=== PATIENT | male | born 1970 | race Caucasian/White ===

== ENCOUNTER 2018-08-28 11:12 | Inpatient (IN) | payer MEDICAID, OTHER ==
[~2018-08-28] VITALS: Ht 190.5 cm; Wt 110.0 kg
[2018-08-28] MEDS ORDERED: METH5TAB2 PO (11:29)
[2018-08-28] MEDS ORDERED: VANCOMYCIN PER PHARMACY MC ONE (11:30)
[2018-08-28] MEDS ORDERED: KETOROLAC 30 MG/1 ML IVPush ONE (11:30)
[2018-08-28] MEDS ORDERED: CLINDAMYCIN PMX 900MG/50ML 50 ML IV ONE (11:30)
[2018-08-28] MEDS ORDERED: KETOROLAC 30 MG/1 ML ONE (11:30)
[2018-08-28] MEDS ORDERED: CLINDAMYCIN PMX 900MG/50ML 50 ML ONE (11:31)
[2018-08-28] MEDS ORDERED: VANCOMYCIN 1,800 MG in SODIUM CHLORIDE 0.9% 250 ML IV ONE (12:00)
[2018-08-28 12:13] LABS: ALANINE AMINOTRANSFERASE 39 U/L (12-78); ALBUMIN 2.6 g/dL (3.4-5.0); ANION GAP 9 mmol/L (5-15); CALCIUM 8.7 mg/dL (8.5-10.1); CHLORIDE 110 mmol/L (98-107); CREATININE 0.95 mg/dL (0.7-1.3)
[2018-08-28 12:15] LABS: ALKALINE PHOSPHATASE 134 U/L (45-117); BILIRUBIN,TOTAL 0.4 mg/dL (0.2-1.0); TOTAL PROTEIN 8.9 g/dL (6.4-8.2)
--- NOTE | 2018-08-28 12:27 | NUR ---
PT RESTING IN GURNEY WITH GUARDS AT BEDSIDE, IV ESTABLISHED VIA US AFTER SEVERAL ATTEMPTS UNSUCCESSFUL. 2ND BC DRAWN OFF IV START AND ABX STARTED AFTER BC DRAWN. PT TO BE ADMITTED
[2018-08-28 12:34] LABS: MD YES; MEAN CORPUSCULAR HEMOGLOBIN 23.8 pg (27.5-34.5); MEAN CORPUSCULAR HGB CONC 31.5 g/dL (33.2-36.2); MEAN CORPUSCULAR VOLUME 75.5 fL (81-97); MEAN PLATELET VOLUME 5.8 fL (7.4-10.4); PLATELET COUNT 626 x10^3/uL (130-400); RED BLOOD COUNT 4.35 x10^6/uL (4.38-5.82); RED CELL DISTRIBUTION WIDTH 25.5 % (9.4-14.8)
[2018-08-28 12:38] LABS: <PLATELET ESTIMATE> INCREASED; <PLT MORPHOLOGY> NORMAL PLT MORPH; ANISOCYTOSIS 1+; EOS#(MANUAL) 0.18 x10^3/uL (0.0-0.4); EOS% (MANUAL) 2 % (1-7); LYMPH#(MANUAL) 1.85 x10^3/uL (1-3.4); LYMPHS% (MANUAL) 21 % (22-44); MICROCYTOSIS 1+; MONOS#(MANUAL) 0.09 x10^3/uL (0.3-2.7); MONOS% (MANUAL) 1 % (2-9); SEG#(MANUAL) 6.69 x10^3/uL (1.8-6.8); SEGS% (MANUAL) 76 % (42-75)
--- NOTE | 2018-08-28 13:22 | NUR ---
IV CLEOCIN FINISHED AND VANCO STARTED, PT C/O PAIN, STATES "ITS ALSO WITHDRAWLS MAKING IT REAL BAD". PT RESTING IN GURNEY WITH GUARDS AT BEDSIDE
[2018-08-28] MEDS ORDERED: ACETAMINOPHEN 500 MG TABLET PO ONE (13:30)
[2018-08-28] MEDS ORDERED: ACETAMINOPHEN 500 MG TABLET ONE (13:42)
[2018-08-28] MEDS ORDERED: ACETAMINOPHEN 325 MG TABLET PO PRN (14:30)
[2018-08-28] MEDS ORDERED: LABETALOL 5MG/ML, 20ML IVPush PRN (14:30)
[2018-08-28] MEDS ORDERED: VANCOMYCIN PER PHARMACY MC PRN (14:30)
--- NOTE | 2018-08-28 14:32 | NUR ---
ADMITTING MD AT BEDSIDE
--- NOTE | 2018-08-28 14:57 | NUR ---
PT REFUSING TO HAVE LABS DRAWN, INDUCTION COORDINATION ENGINEER NOTIFIED RN. ASKED WHY AND PT STATES "THEY WONT GIVE ME MY [facility], I WANT TO GO BACK TO [facility], I GET OUT TOMORROW AND I WILL TAKE CARE OF IT THEN", OFFICER AT BEDSIDE NOTIFYING LUISITO AT [facility], HE DOES NOT THINK THEY WILL ACCEPT PT BACK. MD AND RAILWAY YARD ASSISTANT NOTIFIED.
--- NOTE | 2018-08-28 15:13 | NUR ---
OFFICER DEAL NOTIFIED SGT RUBIN AT [facility] REFUSALF OF TREATMENT AND WISH TO LEAVE AMA, SGNadine OK'D PT COMING BACK TO LONG-TERM AGAINST MEDICAL ADVICE WITH AMA PAPERWORK. NO LONGER ON SHIFT, TO CONTACT AND TO SPEAK TO OFFICER AND PT TO ENSURE UNDERSTAND OF PT CONDITION AND RISKS OF LEAVING AMA.
[2018-08-28] MEDS ORDERED: LORazepam 2 MG/ML, 1ML IVPush PRN (16:00)
--- NOTE | 2018-08-28 16:09 | NUR ---
SPOKE WITH PT AND GUARD, PT NO LONGER LEAVING AMA
--- NOTE | 2018-08-28 16:17 | NUR ---
REPORT TO EVE JENKINS
[2018-08-28 16:45] VITALS: BP 113/77
[2018-08-28] MEDS ORDERED: PHARMACOKINETIC MONITORING MC PRN (17:00)
[2018-08-28] MEDS ORDERED: PHARMACOKINETIC CONSULTATION MC ONE (17:00)
[2018-08-28] MEDS: HEPARIN 5,000 UNITS/ML, 1ML SQ SCH ×2 (17:29→23:17)
[2018-08-28] MEDS: PIPERACILLIN/TAZO/PMX 3.375GM 50 ML IV SCH ×2 (17:30→23:18)
[2018-08-28 19:12] VITALS: BP 105/65
[2018-08-29] MEDS: VANCOMYCIN 1,800 MG in SODIUM CHLORIDE 0.9% 250 ML IV SCH ×2 (01:06→13:52)
[2018-08-29 01:11] VITALS: BP 117/71
[2018-08-29 05:21] LABS: MEAN CORPUSCULAR HEMOGLOBIN 23.6 pg (27.5-34.5); MEAN CORPUSCULAR HGB CONC 31.3 g/dL (33.2-36.2); MEAN CORPUSCULAR VOLUME 75.5 fL (81-97); MEAN PLATELET VOLUME 5.9 fL (7.4-10.4); PLATELET COUNT 513 x10^3/uL (130-400); RED BLOOD COUNT 3.95 x10^6/uL (4.38-5.82)
[2018-08-29 05:24] LABS: CHLORIDE 111 mmol/L (98-107)
[2018-08-29] MEDS: PIPERACILLIN/TAZO/PMX 3.375GM 50 ML IV SCH ×4 (05:27→23:30)
[2018-08-29 05:38] LABS: ALANINE AMINOTRANSFERASE 29 U/L (12-78); ALBUMIN 2.2 g/dL (3.4-5.0); ALKALINE PHOSPHATASE 105 U/L (45-117); ANION GAP 9 mmol/L (5-15); BILIRUBIN,TOTAL 0.4 mg/dL (0.2-1.0); CALCIUM 8.1 mg/dL (8.5-10.1); CREATININE 1.05 mg/dL (0.7-1.3); TOTAL PROTEIN 7.6 g/dL (6.4-8.2)
[2018-08-29 05:56] LABS: BASOPHILS # (AUTO) 0.03 x10^3/uL (0-0.1); BASOPHILS % (AUTO) 0 % (0-1); EOSINOPHILS # (AUTO) 0.17 x10^3/uL (0-0.4); EOSINOPHILS % (AUTO) 2 % (1-7); LYMPHOCYTES # (AUTO) 1.62 x10^3/uL (1-3.4); LYMPHOCYTES % (AUTO) 23 % (22-44); MD SCAN; MONOCYTES % (AUTO) 8 % (2-9); NEUTROPHILS # (AUTO) 4.73 x10^3/uL (1.8-6.8); NEUTROPHILS % (AUTO) 66 % (42-75)
[2018-08-29] MEDS: HEPARIN 5,000 UNITS/ML, 1ML SQ SCH ×3 (06:55→22:30)
[2018-08-29 08:00] VITALS: BP 137/72
[2018-08-29] MEDS: FERROUS SULFATE 325 MG TABLET PO SCH ×2 (08:11→17:12)
[2018-08-29] MEDS: MUPIROCIN OINT 2%, 22GM TP SCH ×3 (11:32→21:00)
[2018-08-29] MEDS: POTASSIUM CHLORIDE 10 MEQ in D5%-0.45% NACL 1,000 ML IV SCH ×2 (12:43→22:00)
[2018-08-29 19:38] VITALS: BP 122/78
[2018-08-30] MEDS: VANCOMYCIN 1,800 MG in SODIUM CHLORIDE 0.9% 250 ML IV SCH ×2 (00:54→17:25)
[2018-08-30] MEDS: PIPERACILLIN/TAZO/PMX 3.375GM 50 ML IV SCH ×3 (05:30→19:27)
[2018-08-30] MEDS: HEPARIN 5,000 UNITS/ML, 1ML SQ SCH ×3 (05:42→22:30)
[2018-08-30 07:35] VITALS: BP 133/91
[2018-08-30] MEDS: POTASSIUM CHLORIDE 10 MEQ in D5%-0.45% NACL 1,000 ML IV SCH (08:00)
[2018-08-30] MEDS: FERROUS SULFATE 325 MG TABLET PO SCH ×2 (08:00→17:00)
[2018-08-30] MEDS: MUPIROCIN OINT 2%, 22GM TP SCH ×3 (09:00→21:10)
[2018-08-30 09:11] LABS: MEAN CORPUSCULAR HEMOGLOBIN 23.8 pg (27.5-34.5); MEAN CORPUSCULAR HGB CONC 31.6 g/dL (33.2-36.2); MEAN CORPUSCULAR VOLUME 75.3 fL (81-97); MEAN PLATELET VOLUME 5.8 fL (7.4-10.4); PLATELET COUNT 521 x10^3/uL (130-400); RED CELL DISTRIBUTION WIDTH 25.1 % (9.4-14.8)
[2018-08-30 09:15] LABS: ALANINE AMINOTRANSFERASE 28 U/L (12-78); ALBUMIN 2.3 g/dL (3.4-5.0); ANION GAP 6 mmol/L (5-15); CALCIUM 8.2 mg/dL (8.5-10.1); CHLORIDE 111 mmol/L (98-107); CREATININE 0.98 mg/dL (0.7-1.3)
[2018-08-30 09:18] LABS: ALKALINE PHOSPHATASE 97 U/L (45-117); BILIRUBIN,TOTAL 0.2 mg/dL (0.2-1.0); TOTAL PROTEIN 7.7 g/dL (6.4-8.2)
[2018-08-30 09:46] LABS: BASOPHILS # (AUTO) 0.05 x10^3/uL (0-0.1); BASOPHILS % (AUTO) 1 % (0-1); EOSINOPHILS # (AUTO) 0.14 x10^3/uL (0-0.4); EOSINOPHILS % (AUTO) 3 % (1-7); LYMPHOCYTES # (AUTO) 1.65 x10^3/uL (1-3.4); LYMPHOCYTES % (AUTO) 30 % (22-44); MD SCAN; MONOCYTES # (AUTO) 0.51 x10^3/uL (0.2-0.8); MONOCYTES % (AUTO) 9 % (2-9); NEUTROPHILS % (AUTO) 58 % (42-75)
[2018-08-30 13:40] VITALS: BP 118/67
[2018-08-30] MEDS: METHADONE 10 MG TABLET PO SCH (14:58)
[2018-08-31] MEDS: PIPERACILLIN/TAZO/PMX 3.375GM 50 ML IV SCH ×4 (01:29→23:13)
[2018-08-31] MEDS: HEPARIN 5,000 UNITS/ML, 1ML SQ SCH ×3 (05:40→22:30)
[2018-08-31] MEDS: VANCOMYCIN 1,800 MG in SODIUM CHLORIDE 0.9% 250 ML IV SCH ×2 (05:40→18:35)
[2018-08-31 07:25] VITALS: BP 138/81
[2018-08-31] MEDS: METHADONE 10 MG TABLET PO SCH (08:49)
[2018-08-31] MEDS: FERROUS SULFATE 325 MG TABLET PO SCH ×2 (08:49→16:32)
[2018-08-31] MEDS: MUPIROCIN OINT 2%, 22GM TP SCH ×3 (08:50→21:00)
[2018-08-31] MEDS ORDERED: SULFAMETH./TRIMETHOPRIM DS 800MG/160MG TABLET PO SCH (09:00)
[2018-08-31] MEDS ORDERED: AMOXICILLIN/CLAV 875-125MG TABLET PO SCH (09:00)
[2018-08-31 12:14] VITALS: BP 113/74
[2018-08-31] MEDS ORDERED: PHARMACOKINETIC MONITORING MC PRN (13:00)
[2018-08-31] MEDS ORDERED: VANCOMYCIN PER PHARMACY MC PRN (13:00)
[2018-08-31 23:19] VITALS: BP 105/67
[2018-09-01 05:35] VITALS: BP 108/68
[2018-09-01] MEDS: VANCOMYCIN 1,800 MG in SODIUM CHLORIDE 0.9% 250 ML IV SCH ×2 (05:40→18:06)
[2018-09-01] MEDS: MUPIROCIN OINT 2%, 22GM TP SCH ×3 (05:48→21:00)
[2018-09-01] MEDS: HEPARIN 5,000 UNITS/ML, 1ML SQ SCH ×3 (06:30→22:30)
[2018-09-01] MEDS ORDERED: MIDAZOLAM 1 MG/ML, 2ML ONE (07:47)
[2018-09-01] MEDS ORDERED: FENTANYL PF 250 MCG/5ML ONE ×2 (07:47→08:37)
[2018-09-01] MEDS ORDERED: ALBUTEROL SULFATE 2.5 MG/3 ML NPPB PRN (08:30)
[2018-09-01] MEDS ORDERED: HYDROmorphone 2 MG/ML, 1ML IVPush PRN (08:30)
[2018-09-01] MEDS ORDERED: OXYcodone 5 MG/5 ML ORAL.SOL UDC PO PRN (08:30)
[2018-09-01] MEDS ORDERED: ACETAMINOPHEN 325 MG TABLET PO PRN (08:30)
[2018-09-01] MEDS ORDERED: KETOROLAC 30 MG/1 ML IV PRN (08:30)
[2018-09-01] MEDS ORDERED: hydrALAzine 20 MG/ML, 1ML IV PRN (08:30)
[2018-09-01] MEDS ORDERED: PROMETHAZINE 25 MG/ML, 1ML IV PRN (08:30)
[2018-09-01] MEDS ORDERED: LABETALOL 5MG/ML, 20ML IV PRN (08:30)
[2018-09-01] MEDS ORDERED: DIAZEPAM 5 MG/ML, 2ML IVPush PRN (08:30)
[2018-09-01] MEDS ORDERED: MEPERIDINE/PF 25MG/0.5ML IVPush PRN (08:30)
[2018-09-01] MEDS ORDERED: NEOSPORIN OINT, 15GM ONE (08:43)
[2018-09-01] MEDS ORDERED: BACITRACIN ZINC OINT 500U/GM, 0.9 GM ONE ×2 (08:43→08:44)
[2018-09-01] MEDS ORDERED: DEXAMETHASONE 4 MG/ML, 1ML ONE (08:51)
[2018-09-01] MEDS ORDERED: CEFAZOLIN 1,000 MG ONE (08:51)
[2018-09-01] MEDS ORDERED: PROPOFOL 10 MG/ML, 20ML ONE (08:51)
[2018-09-01] MEDS ORDERED: ONDANSETRON 2MG/ML, 2ML ONE (08:51)
[2018-09-01] MEDS ORDERED: HYDROmorphone 2 MG/ML, 1ML ONE (09:11)
[2018-09-01] MEDS ORDERED: FENTANYL PF 100 MCG/2ML ONE (09:11)
[2018-09-01] MEDS ORDERED: OXYcodone 5 MG/5 ML ORAL.SOL UDC ONE (09:12)
[2018-09-01] MEDS ORDERED: KETOROLAC 30 MG/1 ML ONE (09:12)
[2018-09-01] MEDS: FENTANYL PF 100 MCG/2ML IV PRN ×2 (09:14→09:23)
[2018-09-01] MEDS: PIPERACILLIN/TAZO/PMX 3.375GM 50 ML IV SCH ×2 (10:23→20:26)
[2018-09-01] MEDS: FERROUS SULFATE 325 MG TABLET PO SCH ×2 (10:24→17:05)
[2018-09-01] MEDS: METHADONE 10 MG TABLET PO SCH (10:24)
[2018-09-01 12:02] VITALS: BP 108/66
[2018-09-01 20:18] VITALS: BP 108/66
[2018-09-01] MEDS: SODIUM CHLORIDE FLUSH 3ML SYRINGE IVF SCH (21:00)
[2018-09-02 01:47] VITALS: BP 103/63
[2018-09-02] MEDS: PIPERACILLIN/TAZO/PMX 3.375GM 50 ML IV SCH ×2 (04:07→12:07)
[2018-09-02 05:23] LABS: MEAN CORPUSCULAR HEMOGLOBIN 23.8 pg (27.5-34.5); MEAN CORPUSCULAR HGB CONC 31.2 g/dL (33.2-36.2); MEAN CORPUSCULAR VOLUME 76.1 fL (81-97); MEAN PLATELET VOLUME 5.8 fL (7.4-10.4); PLATELET COUNT 471 x10^3/uL (130-400); RED BLOOD COUNT 3.64 x10^6/uL (4.38-5.82); RED CELL DISTRIBUTION WIDTH 24.9 % (9.4-14.8)
[2018-09-02 05:30] LABS: ALBUMIN 2.3 g/dL (3.4-5.0); ANION GAP 6 mmol/L (5-15); CALCIUM 8.1 mg/dL (8.5-10.1); CHLORIDE 104 mmol/L (98-107)
[2018-09-02 05:34] LABS: ALANINE AMINOTRANSFERASE 44 U/L (12-78); ALKALINE PHOSPHATASE 190 U/L (45-117); BILIRUBIN,TOTAL 0.2 mg/dL (0.2-1.0); CREATININE 1.31 mg/dL (0.7-1.3); TOTAL PROTEIN 7.4 g/dL (6.4-8.2); VANCOMYCIN,TROUGH 28.8 mcg/mL (5.0-10.0)
[2018-09-02 05:47] LABS: BASOPHILS # (AUTO) 0.02 x10^3/uL (0-0.1); BASOPHILS % (AUTO) 0 % (0-1); EOSINOPHILS # (AUTO) 0.05 x10^3/uL (0-0.4); EOSINOPHILS % (AUTO) 1 % (1-7); LYMPHOCYTES # (AUTO) 2.09 x10^3/uL (1-3.4); LYMPHOCYTES % (AUTO) 32 % (22-44); MD SCAN; MONOCYTES # (AUTO) 0.39 x10^3/uL (0.2-0.8); MONOCYTES % (AUTO) 6 % (2-9); NEUTROPHILS # (AUTO) 4.04 x10^3/uL (1.8-6.8); NEUTROPHILS % (AUTO) 61 % (42-75)
[2018-09-02] MEDS: VANCOMYCIN 1,800 MG in SODIUM CHLORIDE 0.9% 250 ML IV SCH (06:00)
[2018-09-02] MEDS: HEPARIN 5,000 UNITS/ML, 1ML SQ SCH ×3 (06:30→22:03)
[2018-09-02 07:02] VITALS: BP 111/70
[2018-09-02] MEDS: FERROUS SULFATE 325 MG TABLET PO SCH ×2 (08:06→17:06)
[2018-09-02] MEDS: METHADONE 10 MG TABLET PO SCH (08:06)
[2018-09-02] MEDS: MUPIROCIN OINT 2%, 22GM TP SCH (08:07)
[2018-09-02] MEDS: SODIUM CHLORIDE FLUSH 3ML SYRINGE IVF SCH ×2 (08:10→21:00)
[2018-09-02] MEDS: SODIUM CHLORIDE 0.9% 1,000 ML IV SCH ×2 (08:10→22:01)
[2018-09-02] MEDS: CEFTAROLINE 600 MG in SODIUM CHLORIDE 0.9% 100 ML IV SCH (17:06)
[2018-09-02 19:50] VITALS: BP 127/82
[2018-09-03 01:16] VITALS: BP 108/67
[2018-09-03] MEDS: CEFTAROLINE 600 MG in SODIUM CHLORIDE 0.9% 100 ML IV SCH ×2 (05:00→15:23)
[2018-09-03] MEDS: HEPARIN 5,000 UNITS/ML, 1ML SQ SCH ×3 (05:47→21:32)
[2018-09-03 06:21] LABS: ALBUMIN 2.3 g/dL (3.4-5.0); ANION GAP 7 mmol/L (5-15); CALCIUM 8.4 mg/dL (8.5-10.1); CHLORIDE 108 mmol/L (98-107)
[2018-09-03 06:24] LABS: ALANINE AMINOTRANSFERASE 35 U/L (12-78); ALKALINE PHOSPHATASE 156 U/L (45-117); BILIRUBIN,TOTAL 0.2 mg/dL (0.2-1.0); CREATININE 1.15 mg/dL (0.7-1.3); TOTAL PROTEIN 7.4 g/dL (6.4-8.2)
[2018-09-03 06:27] LABS: VANCOMYCIN,RANDOM 10.5 mcg/mL
[2018-09-03 07:58] VITALS: BP 115/71
[2018-09-03] MEDS: SODIUM CHLORIDE FLUSH 3ML SYRINGE IVF SCH ×2 (09:00→21:00)
[2018-09-03] MEDS: FERROUS SULFATE 325 MG TABLET PO SCH ×2 (09:29→18:03)
[2018-09-03] MEDS: METHADONE 10 MG TABLET PO SCH (09:30)
[2018-09-03 13:11] VITALS: BP 128/72
[2018-09-03] MEDS: MUPIROCIN OINT 2%, 22GM TP SCH (15:23)
[2018-09-03 21:19] VITALS: BP 119/77
[2018-09-04] MEDS: CEFTAROLINE 600 MG in SODIUM CHLORIDE 0.9% 100 ML IV SCH ×2 (03:32→15:02)
[2018-09-04] MEDS: HEPARIN 5,000 UNITS/ML, 1ML SQ SCH ×3 (06:30→20:54)
[2018-09-04 07:50] VITALS: BP 117/77
[2018-09-04] MEDS: FERROUS SULFATE 325 MG TABLET PO SCH ×2 (08:14→16:55)
[2018-09-04] MEDS: METHADONE 10 MG TABLET PO SCH (08:14)
[2018-09-04] MEDS: FLUDROCORTISONE 0.1 MG TABLET PO SCH (08:14)
[2018-09-04] MEDS: SODIUM CHLORIDE FLUSH 3ML SYRINGE IVF SCH ×2 (08:15→20:54)
[2018-09-04] MEDS: MUPIROCIN OINT 2%, 22GM TP SCH (09:00)
[2018-09-04] MEDS ORDERED: MORPHINE SULFATE 4 MG/ML, 1ML ONE (09:21)
[2018-09-04] MEDS ORDERED: MORPHINE SULFATE 4 MG/ML, 1ML IVPush ONE (09:30)
[2018-09-04 12:46] VITALS: BP 112/67
[2018-09-04 20:53] VITALS: BP 138/87
[2018-09-05] MEDS: CEFTAROLINE 600 MG in SODIUM CHLORIDE 0.9% 100 ML IV SCH ×2 (03:29→15:00)
[2018-09-05] MEDS: HEPARIN 5,000 UNITS/ML, 1ML SQ SCH (05:13)
[2018-09-05 07:59] VITALS: BP 125/80
[2018-09-05] MEDS: ENOXAPARIN 40 MG/0.4 ML SQ SCH (08:00)
[2018-09-05] MEDS: FERROUS SULFATE 325 MG TABLET PO SCH ×2 (08:15→16:05)
[2018-09-05] MEDS: METHADONE 10 MG TABLET PO SCH (08:15)
[2018-09-05] MEDS: SODIUM CHLORIDE FLUSH 3ML SYRINGE IVF SCH ×2 (08:15→20:30)
[2018-09-05] MEDS: FLUDROCORTISONE 0.1 MG TABLET PO SCH (08:15)
[2018-09-05] MEDS: MUPIROCIN OINT 2%, 22GM TP SCH (08:16)
[2018-09-05] MEDS: GABAPENTIN 100 MG CAPSULE PO SCH ×2 (16:05→20:29)
[2018-09-05] MEDS: OMEPRAZOLE 20 MG CAPSULE.DR PO SCH (16:05)
[2018-09-05 20:45] VITALS: BP 116/74
[2018-09-06 00:19] VITALS: BP 112/73
[2018-09-06] MEDS: CEFTAROLINE 600 MG in SODIUM CHLORIDE 0.9% 100 ML IV SCH ×2 (03:54→15:31)
[2018-09-06] MEDS: OMEPRAZOLE 20 MG CAPSULE.DR PO SCH ×2 (05:25→15:31)
[2018-09-06] MEDS: GABAPENTIN 100 MG CAPSULE PO SCH ×4 (05:25→20:31)
[2018-09-06] MEDS: FLUDROCORTISONE 0.1 MG TABLET PO SCH (07:38)
[2018-09-06] MEDS: FERROUS SULFATE 325 MG TABLET PO SCH ×2 (07:38→16:54)
[2018-09-06] MEDS: METHADONE 10 MG TABLET PO SCH (07:38)
[2018-09-06] MEDS: SODIUM CHLORIDE FLUSH 3ML SYRINGE IVF SCH ×2 (07:39→20:31)
[2018-09-06] MEDS: MUPIROCIN OINT 2%, 22GM TP SCH (07:39)
[2018-09-06] MEDS: ENOXAPARIN 40 MG/0.4 ML SQ SCH (07:39)
[2018-09-06 08:12] VITALS: BP 129/82
[2018-09-06 14:09] VITALS: BP 109/71
[2018-09-06 20:35] VITALS: BP 122/80
[2018-09-07 00:36] VITALS: BP 112/70
[2018-09-07] MEDS: CEFTAROLINE 600 MG in SODIUM CHLORIDE 0.9% 100 ML IV SCH ×2 (03:45→16:19)
[2018-09-07] MEDS: OMEPRAZOLE 20 MG CAPSULE.DR PO SCH ×2 (05:23→16:19)
[2018-09-07] MEDS: GABAPENTIN 100 MG CAPSULE PO SCH ×2 (05:23→10:46)
[2018-09-07] MEDS: METHADONE 10 MG TABLET PO SCH (08:36)
[2018-09-07] MEDS: FERROUS SULFATE 325 MG TABLET PO SCH ×2 (08:37→16:19)
[2018-09-07] MEDS: FLUDROCORTISONE 0.1 MG TABLET PO SCH (08:37)
[2018-09-07] MEDS: ENOXAPARIN 40 MG/0.4 ML SQ SCH (08:37)
[2018-09-07] MEDS: MUPIROCIN OINT 2%, 22GM TP SCH (09:45)
[2018-09-07] MEDS: SODIUM CHLORIDE FLUSH 3ML SYRINGE IVF SCH ×2 (09:46→21:00)
[2018-09-07 14:01] VITALS: BP 101/64
[2018-09-07] MEDS: GABAPENTIN 400 MG CAPSULE PO SCH ×2 (16:19→21:11)
[2018-09-07 20:18] VITALS: BP 103/65
[2018-09-08 02:14] VITALS: BP 107/64
[2018-09-08] MEDS: CEFTAROLINE 600 MG in SODIUM CHLORIDE 0.9% 100 ML IV SCH ×2 (03:05→15:37)
[2018-09-08 05:46] LABS: HCT (SEDRATE) 29.2 % (39.2-51.8)
[2018-09-08 05:50] LABS: MEAN CORPUSCULAR HEMOGLOBIN 24.1 pg (27.5-34.5); MEAN CORPUSCULAR HGB CONC 31.4 g/dL (33.2-36.2); MEAN CORPUSCULAR VOLUME 76.8 fL (81-97); PLATELET COUNT 435 x10^3/uL (130-400); RED CELL DISTRIBUTION WIDTH 26.3 % (9.4-14.8)
[2018-09-08 05:57] LABS: ALANINE AMINOTRANSFERASE 40 U/L (12-78); ALBUMIN 2.5 g/dL (3.4-5.0); ANION GAP 5 mmol/L (5-15); CALCIUM 8.5 mg/dL (8.5-10.1); CHLORIDE 106 mmol/L (98-107); CREATININE 1.25 mg/dL (0.7-1.3)
[2018-09-08 06:04] LABS: ALKALINE PHOSPHATASE 197 U/L (45-117); BILIRUBIN,TOTAL 0.3 mg/dL (0.2-1.0); TOTAL PROTEIN 7.5 g/dL (6.4-8.2)
[2018-09-08 06:09] LABS: BASOPHILS # (AUTO) 0.06 x10^3/uL (0-0.1); BASOPHILS % (AUTO) 1 % (0-1); EOSINOPHILS # (AUTO) 0.65 x10^3/uL (0-0.4); EOSINOPHILS % (AUTO) 9 % (1-7); LYMPHOCYTES # (AUTO) 2.88 x10^3/uL (1-3.4); LYMPHOCYTES % (AUTO) 39 % (22-44); MD SCAN; MONOCYTES # (AUTO) 0.64 x10^3/uL (0.2-0.8); MONOCYTES % (AUTO) 9 % (2-9); NEUTROPHILS # (AUTO) 3.25 x10^3/uL (1.8-6.8); NEUTROPHILS % (AUTO) 43 % (42-75)
[2018-09-08] MEDS: OMEPRAZOLE 20 MG CAPSULE.DR PO SCH ×2 (06:15→15:37)
[2018-09-08] MEDS: GABAPENTIN 400 MG CAPSULE PO SCH ×4 (06:21→20:47)
[2018-09-08 07:36] VITALS: BP 109/72
[2018-09-08] MEDS: ENOXAPARIN 40 MG/0.4 ML SQ SCH (07:37)
[2018-09-08] MEDS: FERROUS SULFATE 325 MG TABLET PO SCH ×2 (08:37→17:12)
[2018-09-08] MEDS: FLUDROCORTISONE 0.1 MG TABLET PO SCH (08:37)
[2018-09-08] MEDS: METHADONE 10 MG TABLET PO SCH (08:37)
[2018-09-08] MEDS: SODIUM CHLORIDE FLUSH 3ML SYRINGE IVF SCH ×2 (08:38→20:47)
[2018-09-08] MEDS: MUPIROCIN OINT 2%, 22GM TP SCH (08:38)
[2018-09-08 13:56] VITALS: BP 113/71
[2018-09-08 19:23] VITALS: BP 100/62
[2018-09-09 02:55] VITALS: BP 114/73
[2018-09-09] MEDS: CEFTAROLINE 600 MG in SODIUM CHLORIDE 0.9% 100 ML IV SCH ×2 (03:21→15:43)
[2018-09-09] MEDS: OMEPRAZOLE 20 MG CAPSULE.DR PO SCH ×2 (05:20→16:39)
[2018-09-09] MEDS: GABAPENTIN 400 MG CAPSULE PO SCH ×4 (05:20→22:00)
[2018-09-09] MEDS: SODIUM CHLORIDE FLUSH 3ML SYRINGE IVF SCH ×2 (08:03→22:00)
[2018-09-09] MEDS: METHADONE 10 MG TABLET PO SCH (08:03)
[2018-09-09] MEDS: FERROUS SULFATE 325 MG TABLET PO SCH ×2 (08:03→16:32)
[2018-09-09] MEDS: ENOXAPARIN 40 MG/0.4 ML SQ SCH (08:03)
[2018-09-09] MEDS: FLUDROCORTISONE 0.1 MG TABLET PO SCH (08:04)
[2018-09-09 08:06] VITALS: BP 112/74
[2018-09-09] MEDS: MUPIROCIN OINT 2%, 22GM TP SCH (15:43)
[2018-09-09 16:07] VITALS: BP 104/68
[2018-09-09 20:00] VITALS: BP 133/85
[2018-09-10] MEDS: CEFTAROLINE 600 MG in SODIUM CHLORIDE 0.9% 100 ML IV SCH ×2 (03:21→16:16)
[2018-09-10] MEDS: GABAPENTIN 400 MG CAPSULE PO SCH ×4 (05:50→21:47)
[2018-09-10] MEDS: OMEPRAZOLE 20 MG CAPSULE.DR PO SCH ×2 (05:50→16:16)
[2018-09-10 07:58] VITALS: BP 119/75
[2018-09-10] MEDS: METHADONE 10 MG TABLET PO SCH (08:53)
[2018-09-10] MEDS: SODIUM CHLORIDE FLUSH 3ML SYRINGE IVF SCH ×2 (08:53→21:48)
[2018-09-10] MEDS: ENOXAPARIN 40 MG/0.4 ML SQ SCH (08:53)
[2018-09-10] MEDS: FLUDROCORTISONE 0.1 MG TABLET PO SCH (08:53)
[2018-09-10] MEDS: FERROUS SULFATE 325 MG TABLET PO SCH ×2 (08:53→16:16)
[2018-09-10] MEDS: CIPROFLOXACIN 500 MG TABLET PO SCH ×2 (10:49→21:47)
[2018-09-10] MEDS: MUPIROCIN OINT 2%, 22GM TP SCH ×2 (10:49→13:30)
[2018-09-10] MEDS ORDERED: METHADONE 10 MG TABLET PO ONE (12:00)
[2018-09-10 12:03] VITALS: BP 100/63
[2018-09-10] MEDS ORDERED: SODIUM CHLORIDE 0.9% 1,000 ML IV SCH (14:00)
[2018-09-10 20:51] VITALS: BP 102/62
[2018-09-11 02:34] VITALS: BP 110/67
[2018-09-11] MEDS: CEFTAROLINE 600 MG in SODIUM CHLORIDE 0.9% 100 ML IV SCH ×2 (03:09→16:35)
[2018-09-11] MEDS: OMEPRAZOLE 20 MG CAPSULE.DR PO SCH ×2 (05:56→16:35)
[2018-09-11] MEDS: GABAPENTIN 400 MG CAPSULE PO SCH ×4 (05:56→22:43)
[2018-09-11] MEDS: FERROUS SULFATE 325 MG TABLET PO SCH ×2 (08:12→16:35)
[2018-09-11] MEDS: METHADONE 10 MG TABLET PO SCH (08:12)
[2018-09-11] MEDS: FLUDROCORTISONE 0.1 MG TABLET PO SCH (08:12)
[2018-09-11] MEDS: CIPROFLOXACIN 500 MG TABLET PO SCH ×2 (08:12→22:43)
[2018-09-11] MEDS: ENOXAPARIN 40 MG/0.4 ML SQ SCH (08:13)
[2018-09-11] MEDS: SODIUM CHLORIDE FLUSH 3ML SYRINGE IVF SCH ×2 (08:13→22:43)
[2018-09-11] MEDS: MUPIROCIN OINT 2%, 22GM TP SCH (08:14)
[2018-09-11 09:14] VITALS: BP 110/71
[2018-09-11 13:53] VITALS: BP 97/58
[2018-09-11 21:12] VITALS: BP 111/68
[2018-09-12 02:06] VITALS: BP 100/65
[2018-09-12] MEDS: CEFTAROLINE 600 MG in SODIUM CHLORIDE 0.9% 100 ML IV SCH ×2 (03:53→18:08)
[2018-09-12] MEDS: GABAPENTIN 400 MG CAPSULE PO SCH ×4 (06:00→22:48)
[2018-09-12] MEDS: OMEPRAZOLE 20 MG CAPSULE.DR PO SCH ×2 (06:00→17:49)
[2018-09-12 07:30] VITALS: BP 106/66
[2018-09-12] MEDS: ENOXAPARIN 40 MG/0.4 ML SQ SCH (08:00)
[2018-09-12] MEDS: SODIUM CHLORIDE FLUSH 3ML SYRINGE IVF SCH ×2 (08:37→22:48)
[2018-09-12] MEDS: FERROUS SULFATE 325 MG TABLET PO SCH ×2 (08:37→17:49)
[2018-09-12] MEDS: CIPROFLOXACIN 500 MG TABLET PO SCH ×2 (08:37→22:47)
[2018-09-12] MEDS: FLUDROCORTISONE 0.1 MG TABLET PO SCH (08:38)
[2018-09-12] MEDS: MUPIROCIN OINT 2%, 22GM TP SCH (08:38)
[2018-09-12] MEDS: METHADONE 10 MG TABLET PO SCH (08:38)
[2018-09-12] MEDS ORDERED: SODIUM CHLORIDE 0.9% 1,000 ML IV SCH (09:00)
[2018-09-12] MEDS ORDERED: FENTANYL PF 250 MCG/5ML ONE (13:00)
[2018-09-12] MEDS ORDERED: MIDAZOLAM 1 MG/ML, 2ML ONE (13:00)
[2018-09-12] MEDS ORDERED: ONDANSETRON 2MG/ML, 2ML IV PRN (13:30)
[2018-09-12] MEDS ORDERED: hydrALAzine 20 MG/ML, 1ML IV PRN (13:30)
[2018-09-12] MEDS ORDERED: PROMETHAZINE 25 MG/ML, 1ML IM PRN ×2 (13:30)
[2018-09-12] MEDS ORDERED: PROMETHAZINE 25 MG/ML, 1ML IV PRN (13:30)
[2018-09-12] MEDS ORDERED: MEPERIDINE/PF 25MG/0.5ML IVPush PRN (13:30)
[2018-09-12] MEDS ORDERED: FENTANYL PF 100 MCG/2ML IV PRN (13:30)
[2018-09-12] MEDS ORDERED: HALOPERIDOL 5 MG/ML IV PRN (13:30)
[2018-09-12] MEDS ORDERED: MORPHINE SULFATE 4 MG/ML, 1ML IVPush PRN (13:30)
[2018-09-12] MEDS ORDERED: ONDANSETRON ODT 8 MG PO PRN (13:30)
[2018-09-12] MEDS ORDERED: PROMETHAZINE 25 MG SUPP PR PRN (13:30)
[2018-09-12] MEDS ORDERED: OXYcodone 5 MG/5 ML ORAL.SOL UDC PO PRN (13:30)
[2018-09-12] MEDS ORDERED: LABETALOL 5MG/ML, 20ML IV PRN (13:30)
[2018-09-12] MEDS ORDERED: PROMETHAZINE 12.5 MG SUPP PR PRN (13:30)
[2018-09-12] MEDS ORDERED: ACETAMINOPHEN 325 MG TABLET PO PRN (13:30)
[2018-09-12] MEDS ORDERED: PHENYLEPHRINE 10 MG/ML ONE (13:36)
[2018-09-12] MEDS ORDERED: MINERAL OIL 10 ML VIAL MC ONE (13:44)
[2018-09-12] MEDS ORDERED: PROPOFOL 10 MG/ML, 20ML ONE (15:05)
[2018-09-12] MEDS ORDERED: ROCURONIUM 10MG/ML,5ML ONE (15:05)
[2018-09-12] MEDS ORDERED: CEFAZOLIN 1,000 MG ONE (15:05)
[2018-09-12] MEDS ORDERED: GLYCOPYRROLATE 0.2MG/1ML, 5ML ONE (15:05)
[2018-09-12] MEDS ORDERED: NEOSTIGMINE 1 MG/ML, 10ML ONE (15:05)
[2018-09-12] MEDS ORDERED: HYDROmorphone 2 MG/ML, 1ML ONE ×2 (15:27→15:50)
[2018-09-12] MEDS ORDERED: OXYcodone 5 MG/5 ML ORAL.SOL UDC ONE (15:27)
[2018-09-12] MEDS: HYDROmorphone 2 MG/ML, 1ML IVPush PRN ×5 (15:30→15:55)
[2018-09-12 21:03] VITALS: BP 126/77
[2018-09-13 01:14] VITALS: BP 121/71
[2018-09-13] MEDS: CEFTAROLINE 600 MG in SODIUM CHLORIDE 0.9% 100 ML IV SCH ×2 (04:47→16:32)
[2018-09-13 05:38] LABS: CREATININE 1.37 mg/dL (0.7-1.3)
[2018-09-13] MEDS: GABAPENTIN 400 MG CAPSULE PO SCH ×4 (06:35→21:22)
[2018-09-13] MEDS: OMEPRAZOLE 20 MG CAPSULE.DR PO SCH ×2 (06:35→16:32)
[2018-09-13 06:37] VITALS: BP 102/59
[2018-09-13] MEDS: ENOXAPARIN 40 MG/0.4 ML SQ SCH (07:44)
[2018-09-13] MEDS: FERROUS SULFATE 325 MG TABLET PO SCH ×2 (08:43→16:32)
[2018-09-13] MEDS: METHADONE 10 MG TABLET PO SCH (08:43)
[2018-09-13] MEDS: CIPROFLOXACIN 500 MG TABLET PO SCH ×2 (08:44→21:22)
[2018-09-13] MEDS: FLUDROCORTISONE 0.1 MG TABLET PO SCH (08:44)
[2018-09-13] MEDS: SODIUM CHLORIDE FLUSH 3ML SYRINGE IVF SCH ×2 (08:45→21:22)
[2018-09-13] MEDS: SODIUM CHLORIDE 0.9% 1,000 ML IV SCH ×3 (08:45→23:00)
[2018-09-13 14:30] VITALS: BP 99/51
[2018-09-13 20:17] VITALS: BP 105/70
[2018-09-14 00:43] VITALS: BP 111/70
[2018-09-14] MEDS: CEFTAROLINE 600 MG in SODIUM CHLORIDE 0.9% 100 ML IV SCH ×2 (03:51→15:02)
[2018-09-14] MEDS: OMEPRAZOLE 20 MG CAPSULE.DR PO SCH ×2 (06:43→17:00)
[2018-09-14] MEDS: GABAPENTIN 400 MG CAPSULE PO SCH ×4 (06:43→19:55)
[2018-09-14 06:46] VITALS: BP 113/68
[2018-09-14] MEDS: ENOXAPARIN 40 MG/0.4 ML SQ SCH (07:52)
[2018-09-14] MEDS: SODIUM CHLORIDE FLUSH 3ML SYRINGE IVF SCH ×2 (07:52→19:56)
[2018-09-14] MEDS: FLUDROCORTISONE 0.1 MG TABLET PO SCH (07:59)
[2018-09-14] MEDS: FERROUS SULFATE 325 MG TABLET PO SCH ×2 (07:59→17:00)
[2018-09-14] MEDS: CIPROFLOXACIN 500 MG TABLET PO SCH ×2 (07:59→19:55)
[2018-09-14] MEDS: METHADONE 10 MG TABLET PO SCH (07:59)
[2018-09-14 09:09] LABS: ALANINE AMINOTRANSFERASE 73 U/L (12-78); ALBUMIN 2.6 g/dL (3.4-5.0); ANION GAP 9 mmol/L (5-15); CALCIUM 8.7 mg/dL (8.5-10.1); CHLORIDE 106 mmol/L (98-107); CREATININE 1.41 mg/dL (0.7-1.3)
[2018-09-14 09:11] LABS: ALKALINE PHOSPHATASE 300 U/L (45-117); BILIRUBIN,TOTAL 0.2 mg/dL (0.2-1.0)
[2018-09-14 11:00] LABS: MICROSCOPIC AUTO
[2018-09-14 11:02] LABS: CULTURE INDICATED? NO
[2018-09-14] MEDS: SODIUM CHLORIDE 0.9% 1,000 ML IV SCH ×2 (11:18→19:56)
[2018-09-14 12:25] VITALS: BP 109/63
[2018-09-14 19:48] VITALS: BP 120/70
[2018-09-15 02:46] VITALS: BP 102/66
[2018-09-15] MEDS: SODIUM CHLORIDE 0.9% 1,000 ML IV SCH ×2 (02:46→11:18)
[2018-09-15] MEDS: CEFTAROLINE 600 MG in SODIUM CHLORIDE 0.9% 100 ML IV SCH ×2 (02:46→15:32)
[2018-09-15] MEDS: GABAPENTIN 400 MG CAPSULE PO SCH ×4 (05:47→21:36)
[2018-09-15] MEDS: OMEPRAZOLE 20 MG CAPSULE.DR PO SCH ×2 (05:47→16:08)
[2018-09-15 06:50] VITALS: BP 104/63
[2018-09-15] MEDS: ENOXAPARIN 40 MG/0.4 ML SQ SCH ×2 (08:00→08:05)
[2018-09-15] MEDS: FLUDROCORTISONE 0.1 MG TABLET PO SCH (08:05)
[2018-09-15] MEDS: METHADONE 10 MG TABLET PO SCH (08:05)
[2018-09-15] MEDS: FERROUS SULFATE 325 MG TABLET PO SCH ×2 (08:05→16:08)
[2018-09-15] MEDS: CIPROFLOXACIN 500 MG TABLET PO SCH ×2 (08:06→21:36)
[2018-09-15] MEDS: SODIUM CHLORIDE FLUSH 3ML SYRINGE IVF SCH ×2 (08:06→21:00)
[2018-09-15 09:14] LABS: ALANINE AMINOTRANSFERASE 55 U/L (12-78); ALBUMIN 2.6 g/dL (3.4-5.0); ANION GAP 10 mmol/L (5-15); CALCIUM 8.6 mg/dL (8.5-10.1); CHLORIDE 106 mmol/L (98-107)
[2018-09-15 09:17] LABS: ALKALINE PHOSPHATASE 250 U/L (45-117); BILIRUBIN,TOTAL 0.2 mg/dL (0.2-1.0); CREATININE 1.32 mg/dL (0.7-1.3); TOTAL PROTEIN 7.8 g/dL (6.4-8.2)
[2018-09-15 12:41] VITALS: BP 112/63
[2018-09-15 19:43] VITALS: BP 102/84
[2018-09-16 01:18] VITALS: BP 111/69
[2018-09-16] MEDS: CEFTAROLINE 600 MG in SODIUM CHLORIDE 0.9% 100 ML IV SCH ×2 (03:13→15:57)
[2018-09-16 05:41] LABS: CHLORIDE 107 mmol/L (98-107)
[2018-09-16 05:48] LABS: ALANINE AMINOTRANSFERASE 46 U/L (12-78); ALBUMIN 2.6 g/dL (3.4-5.0); ALKALINE PHOSPHATASE 228 U/L (45-117); ANION GAP 7 mmol/L (5-15); BILIRUBIN,TOTAL 0.4 mg/dL (0.2-1.0); CALCIUM 8.7 mg/dL (8.5-10.1); CREATININE 1.32 mg/dL (0.7-1.3); TOTAL PROTEIN 7.8 g/dL (6.4-8.2)
[2018-09-16] MEDS: GABAPENTIN 400 MG CAPSULE PO SCH ×4 (06:21→20:53)
[2018-09-16] MEDS: OMEPRAZOLE 20 MG CAPSULE.DR PO SCH ×2 (06:21→15:57)
[2018-09-16 07:20] VITALS: BP 113/75
[2018-09-16] MEDS: HEPARIN 5,000 UNITS/ML, 1ML SQ SCH ×3 (07:30→22:52)
[2018-09-16] MEDS: FLUDROCORTISONE 0.1 MG TABLET PO SCH (07:55)
[2018-09-16] MEDS: FERROUS SULFATE 325 MG TABLET PO SCH ×2 (07:56→15:57)
[2018-09-16] MEDS: CIPROFLOXACIN 500 MG TABLET PO SCH ×2 (07:56→20:53)
[2018-09-16] MEDS: METHADONE 10 MG TABLET PO SCH (07:56)
[2018-09-16] MEDS: SODIUM CHLORIDE FLUSH 3ML SYRINGE IVF SCH ×2 (07:57→20:53)
[2018-09-16] MEDS ORDERED: SODIUM CHLORIDE 0.9% 1,000 ML IV SCH (09:00)
[2018-09-16 13:40] VITALS: BP 105/67
[2018-09-16 19:43] VITALS: BP 95/50
[2018-09-17 01:37] VITALS: BP 98/64
[2018-09-17] MEDS: CEFTAROLINE 600 MG in SODIUM CHLORIDE 0.9% 100 ML IV SCH ×2 (03:42→16:00)
[2018-09-17] MEDS: GABAPENTIN 400 MG CAPSULE PO SCH ×4 (05:40→21:05)
[2018-09-17] MEDS: OMEPRAZOLE 20 MG CAPSULE.DR PO SCH ×2 (05:40→16:00)
[2018-09-17 07:55] VITALS: BP 111/61
[2018-09-17] MEDS: HEPARIN 5,000 UNITS/ML, 1ML SQ SCH ×3 (08:00→21:11)
[2018-09-17] MEDS: SODIUM CHLORIDE FLUSH 3ML SYRINGE IVF SCH ×2 (08:00→21:00)
[2018-09-17] MEDS: METHADONE 10 MG TABLET PO SCH (08:07)
[2018-09-17] MEDS: FLUDROCORTISONE 0.1 MG TABLET PO SCH (08:07)
[2018-09-17] MEDS: FERROUS SULFATE 325 MG TABLET PO SCH ×2 (08:07→17:31)
[2018-09-17] MEDS: CIPROFLOXACIN 500 MG TABLET PO SCH (08:07)
[2018-09-17 09:46] LABS: ALANINE AMINOTRANSFERASE 45 U/L (12-78); ALBUMIN 2.8 g/dL (3.4-5.0); ANION GAP 7 mmol/L (5-15); CALCIUM 9.1 mg/dL (8.5-10.1); CHLORIDE 105 mmol/L (98-107)
[2018-09-17 09:48] LABS: ALKALINE PHOSPHATASE 224 U/L (45-117); BILIRUBIN,TOTAL 0.2 mg/dL (0.2-1.0); CREATINE KINASE, TOTAL 28 U/L (39-308); TOTAL PROTEIN 8.4 g/dL (6.4-8.2)
[2018-09-17 12:09] VITALS: BP 111/58
[2018-09-17 19:38] VITALS: BP 96/63
[2018-09-18 01:31] VITALS: BP 99/61
[2018-09-18] MEDS: CEFTAROLINE 600 MG in SODIUM CHLORIDE 0.9% 100 ML IV SCH (03:40)
[2018-09-18] MEDS: OMEPRAZOLE 20 MG CAPSULE.DR PO SCH ×2 (05:45→15:50)
[2018-09-18] MEDS: GABAPENTIN 400 MG CAPSULE PO SCH ×4 (05:45→20:50)
[2018-09-18 06:00] LABS: MEAN CORPUSCULAR HEMOGLOBIN 24.7 pg (27.5-34.5); MEAN CORPUSCULAR HGB CONC 32.1 g/dL (33.2-36.2); PLATELET COUNT 493 x10^3/uL (130-400); RED BLOOD COUNT 3.98 x10^6/uL (4.38-5.82)
[2018-09-18 06:23] LABS: BASOPHILS # (AUTO) 0.06 x10^3/uL (0-0.1); BASOPHILS % (AUTO) 1 % (0-1); EOSINOPHILS # (AUTO) 0.49 x10^3/uL (0-0.4); EOSINOPHILS % (AUTO) 8 % (1-7); LYMPHOCYTES # (AUTO) 2.65 x10^3/uL (1-3.4); LYMPHOCYTES % (AUTO) 41 % (22-44); MD SCAN; MONOCYTES # (AUTO) 0.55 x10^3/uL (0.2-0.8); MONOCYTES % (AUTO) 9 % (2-9); NEUTROPHILS # (AUTO) 2.72 x10^3/uL (1.8-6.8); NEUTROPHILS % (AUTO) 42 % (42-75)
[2018-09-18 07:28] VITALS: BP 104/56
[2018-09-18] MEDS: METHADONE 40 MG TABLET.SOL PO SCH (08:47)
[2018-09-18] MEDS: SODIUM CHLORIDE FLUSH 3ML SYRINGE IVF SCH ×2 (08:48→20:50)
[2018-09-18] MEDS: HEPARIN 5,000 UNITS/ML, 1ML SQ SCH ×3 (08:48→20:50)
[2018-09-18] MEDS: FLUDROCORTISONE 0.1 MG TABLET PO SCH (08:48)
[2018-09-18] MEDS: FERROUS SULFATE 325 MG TABLET PO SCH ×2 (08:48→15:50)
[2018-09-18 14:41] VITALS: BP 123/69
[2018-09-18 19:06] VITALS: BP 100/68
[2018-09-19 02:43] VITALS: BP 116/65
[2018-09-19 05:59] LABS: MEAN CORPUSCULAR HEMOGLOBIN 25.1 pg (27.5-34.5); MEAN CORPUSCULAR HGB CONC 32.2 g/dL (33.2-36.2); MEAN CORPUSCULAR VOLUME 77.9 fL (81-97); MEAN PLATELET VOLUME 6.1 fL (7.4-10.4); PLATELET COUNT 538 x10^3/uL (130-400); RED BLOOD COUNT 4.49 x10^6/uL (4.38-5.82); RED CELL DISTRIBUTION WIDTH 25.7 % (9.4-14.8)
[2018-09-19] MEDS: GABAPENTIN 400 MG CAPSULE PO SCH ×4 (06:07→21:46)
[2018-09-19] MEDS: OMEPRAZOLE 20 MG CAPSULE.DR PO SCH ×2 (06:07→16:55)
[2018-09-19 06:14] LABS: ALANINE AMINOTRANSFERASE 40 U/L (12-78); ALBUMIN 2.8 g/dL (3.4-5.0); ANION GAP 7 mmol/L (5-15); CALCIUM 9.5 mg/dL (8.5-10.1); CHLORIDE 106 mmol/L (98-107); CREATININE 1.38 mg/dL (0.7-1.3)
[2018-09-19 06:16] LABS: ALKALINE PHOSPHATASE 179 U/L (45-117); BILIRUBIN,TOTAL 0.2 mg/dL (0.2-1.0); TOTAL PROTEIN 8.6 g/dL (6.4-8.2)
[2018-09-19 06:18] LABS: MD YES
[2018-09-19 06:21] LABS: BAND#(MANUAL) 0.14 x10^3/uL; BANDS%(MANUAL) 2 % (0-7); EOS#(MANUAL) 0.28 x10^3/uL (0.0-0.4); EOS% (MANUAL) 4 % (1-7); LYMPH#(MANUAL) 3.85 x10^3/uL (1-3.4); LYMPHS% (MANUAL) 55 % (22-44); MONOS#(MANUAL) 0.28 x10^3/uL (0.3-2.7); MONOS% (MANUAL) 4 % (2-9); SEG#(MANUAL) 2.45 x10^3/uL (1.8-6.8); SEGS% (MANUAL) 35 % (42-75)
[2018-09-19 06:22] LABS: <PLATELET ESTIMATE> INCREASED; <PLT MORPHOLOGY> NORMAL PLT MORPH; MICROCYTOSIS 1+
[2018-09-19 06:23] LABS: ANISOCYTOSIS 2+; POLYCHROMASIA 1+
[2018-09-19 06:58] VITALS: BP 127/74
[2018-09-19] MEDS: HEPARIN 5,000 UNITS/ML, 1ML SQ SCH ×3 (07:30→22:42)
[2018-09-19] MEDS: METHADONE 40 MG TABLET.SOL PO SCH (07:58)
[2018-09-19] MEDS: SODIUM CHLORIDE FLUSH 3ML SYRINGE IVF SCH ×2 (07:58→21:00)
[2018-09-19] MEDS: FLUDROCORTISONE 0.1 MG TABLET PO SCH (07:58)
[2018-09-19] MEDS: FERROUS SULFATE 325 MG TABLET PO SCH ×2 (07:58→16:55)
[2018-09-19 13:10] VITALS: BP 115/65
[2018-09-19 19:02] VITALS: BP 102/66
[2018-09-20 00:32] VITALS: BP 110/63
[2018-09-20] MEDS: GABAPENTIN 400 MG CAPSULE PO SCH ×4 (05:40→20:43)
[2018-09-20] MEDS: HEPARIN 5,000 UNITS/ML, 1ML SQ SCH ×3 (05:40→22:00)
[2018-09-20] MEDS: OMEPRAZOLE 20 MG CAPSULE.DR PO SCH ×2 (05:40→16:10)
[2018-09-20] MEDS ORDERED: METHADONE 10 MG TABLET ONE (08:20)
[2018-09-20] MEDS: FLUDROCORTISONE 0.1 MG TABLET PO SCH (08:26)
[2018-09-20] MEDS: FERROUS SULFATE 325 MG TABLET PO SCH ×2 (08:26→16:10)
[2018-09-20] MEDS: SODIUM CHLORIDE FLUSH 3ML SYRINGE IVF SCH ×2 (08:26→20:43)
[2018-09-20] MEDS: METHADONE 40 MG TABLET.SOL PO SCH (08:26)
[2018-09-20 09:21] VITALS: BP 113/69
[2018-09-20 12:56] LABS: MICROSCOPIC AUTO
[2018-09-20 13:03] VITALS: BP 104/64
[2018-09-20 19:35] VITALS: BP 109/66
[2018-09-21 00:58] VITALS: BP 107/62
[2018-09-21 05:32] LABS: CHLORIDE 104 mmol/L (98-107)
[2018-09-21] MEDS: OMEPRAZOLE 20 MG CAPSULE.DR PO SCH ×2 (05:37→16:59)
[2018-09-21] MEDS: GABAPENTIN 400 MG CAPSULE PO SCH ×4 (05:37→20:24)
[2018-09-21 05:38] LABS: ANION GAP 5 mmol/L (5-15); CREATININE 1.28 mg/dL (0.7-1.3)
[2018-09-21] MEDS: HEPARIN 5,000 UNITS/ML, 1ML SQ SCH (06:29)
[2018-09-21 08:12] VITALS: BP 117/70
[2018-09-21] MEDS: METHADONE 40 MG TABLET.SOL PO SCH (08:46)
[2018-09-21] MEDS: FERROUS SULFATE 325 MG TABLET PO SCH (08:46)
[2018-09-21] MEDS: SODIUM CHLORIDE FLUSH 3ML SYRINGE IVF SCH ×2 (08:46→20:25)
[2018-09-21] MEDS: FLUDROCORTISONE 0.1 MG TABLET PO SCH (08:46)
[2018-09-21 14:59] VITALS: BP 122/65
[2018-09-21 20:00] VITALS: BP 112/64
[2018-09-22 01:52] VITALS: BP 110/66
[2018-09-22] MEDS: OMEPRAZOLE 20 MG CAPSULE.DR PO SCH ×2 (05:43→16:59)
[2018-09-22] MEDS: GABAPENTIN 400 MG CAPSULE PO SCH ×4 (05:43→21:33)
[2018-09-22 06:07] LABS: MEAN CORPUSCULAR HEMOGLOBIN 24.6 pg (27.5-34.5); MEAN CORPUSCULAR HGB CONC 31.8 g/dL (33.2-36.2); MEAN CORPUSCULAR VOLUME 77.3 fL (81-97); PLATELET COUNT 507 x10^3/uL (130-400); RED BLOOD COUNT 4.44 x10^6/uL (4.38-5.82); RED CELL DISTRIBUTION WIDTH 25.7 % (9.4-14.8)
[2018-09-22 06:42] LABS: MD YES
[2018-09-22 06:47] LABS: <PLATELET ESTIMATE> INCREASED; <PLT MORPHOLOGY> NORMAL PLT MORPH; ANISOCYTOSIS 2+; EOS% (MANUAL) 8 % (1-7); LYMPH#(MANUAL) 3.21 x10^3/uL (1-3.4); LYMPHS% (MANUAL) 51 % (22-44); MICROCYTOSIS 1+; MONOS#(MANUAL) 0.13 x10^3/uL (0.3-2.7); MONOS% (MANUAL) 2 % (2-9); POLYCHROMASIA 1+; SEG#(MANUAL) 2.46 x10^3/uL (1.8-6.8); SEGS% (MANUAL) 39 % (42-75)
[2018-09-22 07:33] VITALS: BP 111/64
[2018-09-22] MEDS: FLUDROCORTISONE 0.1 MG TABLET PO SCH (08:23)
[2018-09-22] MEDS: METHADONE 40 MG TABLET.SOL PO SCH (08:23)
[2018-09-22] MEDS: SODIUM CHLORIDE FLUSH 3ML SYRINGE IVF SCH ×2 (08:32→21:00)
[2018-09-22 13:49] VITALS: BP 104/61
[2018-09-22 18:49] VITALS: BP 101/55
[2018-09-23 01:00] VITALS: BP 105/60
[2018-09-23] MEDS: GABAPENTIN 400 MG CAPSULE PO SCH ×4 (05:53→23:11)
[2018-09-23] MEDS: OMEPRAZOLE 20 MG CAPSULE.DR PO SCH ×2 (05:53→18:12)
[2018-09-23 06:40] VITALS: BP 128/75
[2018-09-23 06:44] LABS: MEAN CORPUSCULAR HEMOGLOBIN 24.6 pg (27.5-34.5); MEAN CORPUSCULAR HGB CONC 31.9 g/dL (33.2-36.2); MEAN CORPUSCULAR VOLUME 76.9 fL (81-97); MEAN PLATELET VOLUME 6.2 fL (7.4-10.4); PLATELET COUNT 468 x10^3/uL (130-400); RED BLOOD COUNT 4.52 x10^6/uL (4.38-5.82); RED CELL DISTRIBUTION WIDTH 25.2 % (9.4-14.8)
[2018-09-23 06:57] LABS: ANION GAP 9 mmol/L (5-15); CALCIUM 9.1 mg/dL (8.5-10.1); CHLORIDE 105 mmol/L (98-107); CREATININE 1.14 mg/dL (0.7-1.3)
[2018-09-23 07:19] LABS: MD YES
[2018-09-23 07:22] LABS: BASOS#(MANUAL) 0.12 x10^3/uL (0-0.1); BASOS% (MANUAL) 2 % (0-1); EOS#(MANUAL) 0.31 x10^3/uL (0.0-0.4); EOS% (MANUAL) 5 % (1-7); LYMPH#(MANUAL) 3.29 x10^3/uL (1-3.4); LYMPHS% (MANUAL) 53 % (22-44); MONOS#(MANUAL) 0.19 x10^3/uL (0.3-2.7); MONOS% (MANUAL) 3 % (2-9); SEG#(MANUAL) 2.29 x10^3/uL (1.8-6.8); SEGS% (MANUAL) 37 % (42-75)
[2018-09-23 07:27] LABS: <PLATELET ESTIMATE> INCREASED; <PLT MORPHOLOGY> NORMAL PLT MORPH; ANISOCYTOSIS 1+; MICROCYTOSIS 1+
[2018-09-23] MEDS: SODIUM CHLORIDE FLUSH 3ML SYRINGE IVF SCH ×2 (09:25→21:00)
[2018-09-23] MEDS: FLUDROCORTISONE 0.1 MG TABLET PO SCH (09:25)
[2018-09-23] MEDS: METHADONE 40 MG TABLET.SOL PO SCH (09:25)
[2018-09-23 13:20] VITALS: BP 142/75
[2018-09-23 19:01] VITALS: BP 99/64
[2018-09-24 01:13] VITALS: BP 102/63
[2018-09-24] MEDS: GABAPENTIN 400 MG CAPSULE PO SCH ×4 (06:07→21:27)
[2018-09-24] MEDS: OMEPRAZOLE 20 MG CAPSULE.DR PO SCH ×2 (06:07→16:04)
[2018-09-24 06:58] VITALS: BP 103/68
[2018-09-24] MEDS: SODIUM CHLORIDE FLUSH 3ML SYRINGE IVF SCH ×2 (09:00→21:00)
[2018-09-24] MEDS: METHADONE 40 MG TABLET.SOL PO SCH (09:55)
[2018-09-24] MEDS: FLUDROCORTISONE 0.1 MG TABLET PO SCH (09:55)
[2018-09-24 12:52] VITALS: BP 111/69
[2018-09-24] MEDS: MUPIROCIN OINT 2%, 1 GM APPL. TP SCH ×2 (16:04→21:00)
[2018-09-24 19:19] VITALS: BP 106/63
[2018-09-25 01:59] VITALS: BP 110/73
[2018-09-25] MEDS: OMEPRAZOLE 20 MG CAPSULE.DR PO SCH (06:07)
[2018-09-25] MEDS: GABAPENTIN 400 MG CAPSULE PO SCH ×2 (06:07→09:56)
[2018-09-25 07:35] VITALS: BP 112/65
[2018-09-25] MEDS: SODIUM CHLORIDE FLUSH 3ML SYRINGE IVF SCH (09:00)
[2018-09-25] MEDS ORDERED: FLUD0.1T PO (09:13)
[2018-09-25] MEDS: METHADONE 40 MG TABLET.SOL PO SCH (09:56)
[2018-09-25] MEDS: FLUDROCORTISONE 0.1 MG TABLET PO SCH (09:56)
[2018-09-25] MEDS: MUPIROCIN OINT 2%, 1 GM APPL. TP SCH (09:59)
[2018-09-25 12:00] VITALS: BP 132/78
== END 2018-09-25 12:15 | disposition home or self-care (01) | DRG 577 ==
LOC: ED 12:49 → EDIP 12:52 → 4NOR 16:33
PROVIDERS: ADMIT Internal Medicine; ATTEND Internal Medicine
PROC: 0JBP0ZZ Excision of Left Lower Leg Subcutaneous Tissue and Fascia, Open Approach (ICD-10-PCS; 2018-09-01)
PROC: 0JBN0ZZ Excision of Right Lower Leg Subcutaneous Tissue and Fascia, Open Approach (ICD-10-PCS; 2018-09-01)
PROC: 0HRLX74 Replacement of Left Lower Leg Skin with Autologous Tissue Substitute, Partial Thickness, External Approach (ICD-10-PCS; principal; 2018-09-12 13:30)
PROC: 0HRKX74 Replacement of Right Lower Leg Skin with Autologous Tissue Substitute, Partial Thickness, External Approach (ICD-10-PCS; 2018-09-12 13:30)
DX: S81.801A Unspecified open wound, right lower leg, initial encounter (principal); L03.116 Cellulitis of left lower limb; E27.40 Unspecified adrenocortical insufficiency; E44.0 Moderate protein-calorie malnutrition; E87.2 Acidosis; N17.9 Acute kidney failure, unspecified; L03.115 Cellulitis of right lower limb; B96.5 Pseudomonas (aeruginosa) (mallei) (pseudomallei) as the cause of diseases classified elsewhere; D50.9 Iron deficiency anemia, unspecified; S81.802A Unspecified open wound, left lower leg, initial encounter; X58.XXXA Exposure to other specified factors, initial encounter; Z68.30 Body mass index [BMI] 30.0-30.9, adult; F10.10 Alcohol abuse, uncomplicated; F11.90 Opioid use, unspecified, uncomplicated; F32.9 Major depressive disorder, single episode, unspecified; G62.9 Polyneuropathy, unspecified; D47.3 Essential (hemorrhagic) thrombocythemia; K21.9 Gastro-esophageal reflux disease without esophagitis; R31.29 Other microscopic hematuria; Z66 Do not resuscitate; Z91.19 Patient's noncompliance with other medical treatment and regimen; Y93.89 Activity, other specified; Y92.89 Other specified places as the place of occurrence of the external cause; Y99.8 Other external cause status
CPT/HCPCS: 36415; 76770; 80048; 80053; 80202; 81001; 82024; 82533; 82550; 82565; 82728; 83540; 83550; 83605; 85025; 85651; 86140; 86592; 87040; 87070; 87075; 87077; 87102; 87116; 87147; 87186; 87205; 87206; 87806; 93005; 96365; 96367; 96375; G0378; J0690; J0712; J1100; J1170; J1644; J1650; J1885; J2250; J2405; J2543; J2704; J2710; J3010; J3370; J3480; G0475; J2270; J2370; J7030; J7050

== ENCOUNTER 2019-05-08 10:22 | Inpatient (IN) | payer MEDICAID ==
[~2019-05-08] VITALS: Ht 190.5 cm; Wt 112.8 kg
[~2019-05-08 10:22] MED LIST: ACET325C6 PO; ACET325T26 PO; AMOX1TAB12 PO; APIX5TAB PO; CEPH-368 PO; CITA20TA9 PO; DIAZ5TAB4 PO; DOXY100T51 PO; FERR324T5 PO; FLUD0.1T PO; MAGN400T50 PO; METH10TA2 PO; METH10TA3 PO; METH5TAB2 PO; OXYC5TAB3 PO; PANT40TA5 PO; SULF-169 PO
[2019-05-08] MEDS ORDERED: PIPERACILLIN/TAZO/PMX 3.375GM 50 ML IVPB ONE (11:00)
[2019-05-08] MEDS ORDERED: VANCOMYCIN PER PHARMACY MC ONE (11:00)
[2019-05-08] MEDS ORDERED: PHARMACOKINETIC CONSULTATION MC ONE ×2 (11:00→20:30)
[2019-05-08] MEDS ORDERED: SODIUM CHLORIDE 0.9% 1,000ML IVBOLUS ONE (11:00)
--- NOTE | 2019-05-08 11:03 | NUR ---
Report received from Enzo JENKINS. Waiting on blood culutres to be drawn.
[2019-05-08 11:11] LABS: BASOPHILS # (AUTO) 0.04 x10^3/uL (0-0.1); BASOPHILS % (AUTO) 0 % (0-1); EOSINOPHILS # (AUTO) 0.03 x10^3/uL (0-0.4); EOSINOPHILS % (AUTO) 0 % (1-7); LYMPHOCYTES # (AUTO) 1.07 x10^3/uL (1-3.4); LYMPHOCYTES % (AUTO) 7 % (22-44); MD NO; MEAN CORPUSCULAR HEMOGLOBIN 25.8 pg (27.5-34.5); MEAN CORPUSCULAR HGB CONC 32.7 g/dL (33.2-36.2); MEAN CORPUSCULAR VOLUME 78.9 fL (81-97); MEAN PLATELET VOLUME 5.8 fL (7.4-10.4); MONOCYTES # (AUTO) 0.82 x10^3/uL (0.2-0.8); MONOCYTES % (AUTO) 5 % (2-9); NEUTROPHILS # (AUTO) 14.24 x10^3/uL (1.8-6.8); NEUTROPHILS % (AUTO) 88 % (42-75); PLATELET COUNT 683 x10^3/uL (130-400); RED BLOOD COUNT 4.39 x10^6/uL (4.38-5.82); RED CELL DISTRIBUTION WIDTH 19.7 % (9.4-14.8)
[2019-05-08 11:17] LABS: INTERNATIONAL NORMALIZED RATIO 1.07 (0.93-1.1); PROTHROMBIN TIME 11.4 Seconds (9.6-11.5)
[2019-05-08 11:21] LABS: ALANINE AMINOTRANSFERASE 20 U/L (12-78); ALBUMIN 2.6 g/dL (3.4-5.0); ANION GAP 9 mmol/L (5-15); CALCIUM 8.4 mg/dL (8.5-10.1); CHLORIDE 103 mmol/L (98-107); CREATININE 1.12 mg/dL (0.7-1.3)
[2019-05-08 11:23] LABS: ALKALINE PHOSPHATASE 98 U/L (45-117); BILIRUBIN,TOTAL 0.7 mg/dL (0.2-1.0); TOTAL PROTEIN 8.5 g/dL (6.4-8.2)
[2019-05-08] MEDS ORDERED: HYDROmorphone 1 MG/ML, 1ML INJ IV ONE ×2 (11:30→13:30)
[2019-05-08] MEDS ORDERED: VANCOMYCIN 2,000 MG in SODIUM CHLORIDE 0.9% 500 ML IV ONE (11:30)
[2019-05-08] MEDS ORDERED: PIPERACILLIN/TAZO/PMX 3.375GM 50 ML ONE (11:30)
[2019-05-08] MEDS ORDERED: VANCOMYCIN 2,000 MG in SODIUM CHLORIDE 0.9% 250 ML IV ONE (11:30)
--- NOTE | 2019-05-08 11:40 | NUR ---
In to give IV fluids and IV ABX when pt began stating he was going to pull out his IV and leave AMA. When inquired the reasoning pt verbalized that he was in pain. Discussed that pain medication had been requested. pt stated that he felt that he could "get better outside of the hospital" but "can't walk out of here" therefore decieded to stay. Again advised pt that pain medication had been requested and the IV fluids and ABX where currently ordered to help in healing process. pt agreeable at this time.
--- NOTE | 2019-05-08 11:45 | NUR ---
Ultra sound at bedside.
[2019-05-08] MEDS ORDERED: HYDROmorphone 1 MG/ML, 1ML INJ ONE ×2 (11:52→13:15)
--- NOTE | 2019-05-08 13:16 | NUR ---
admitting , Dr. Celestin, at bedside. Addendum: 05/08/[address] Yeboah at bedside.
[2019-05-08] MEDS ORDERED: HEPARIN 5,000 UNITS/ML, 1ML SQ SCH (13:30)
[2019-05-08] MEDS ORDERED: ONDANSETRON 2MG/ML, 2ML IVPush PRN (13:30)
[2019-05-08] MEDS: AMPICILLIN/SULBACTAM 3 GM in SODIUM CHLORIDE 0.9% 100 ML IV SCH ×2 (13:30→20:19)
[2019-05-08] MEDS ORDERED: VANCOMYCIN PER PHARMACY MC PRN (13:30)
[2019-05-08] MEDS ORDERED: ACETAMINOPHEN 325 MG TABLET PO PRN (13:30)
[2019-05-08] MEDS ORDERED: COLCHICINE 0.6 MG CAPSULE PO ONE ×2 (13:30→17:30)
[2019-05-08] MEDS ORDERED: ONDANSETRON ODT 4 MG PO PRN (13:30)
[2019-05-08 14:38] LABS: AMPHETAMINE SCREEN, URINE Positive (Negative); BARBITURATE SCREEN, URINE Negative (Negative); BENZODIAZEPINE SCREEN, URINE Negative (Negative); CANNABINOID SCREEN, URINE Negative (Negative); COCAINE SCREEN, URINE Negative (Negative); METHADONE SCREEN, URINE Negative (Negative); OPIATE SCREEN, URINE Positive (Negative)
--- NOTE | 2019-05-08 14:42 | NUR ---
Diet tray provided. pt denies additional needs at this time.
[2019-05-08] MEDS ORDERED: [UNRECOGNIZED DRUG - REMARK] MC SCH (15:30)
[2019-05-08] MEDS ORDERED: COLCHICINE 0.6 MG CAPSULE ONE (16:09)
[2019-05-08] MEDS ORDERED: KETOROLAC 30 MG/1 ML ONE (16:09)
[2019-05-08] MEDS ORDERED: HEPARIN 5,000 UNITS/ML, 1ML ONE (16:09)
[2019-05-08] MEDS: KETOROLAC 30 MG/1 ML IV PRN ×2 (16:15→22:48)
[2019-05-08] MEDS: SODIUM CHLORIDE 0.9% 1,000 ML IV SCH (16:15)
--- NOTE | 2019-05-08 16:30 | NUR ---
REPORT FROM ESCOBAR JENKINS.
--- NOTE | 2019-05-08 16:30 | NUR ---
Report give to Etsela. pt medicated for pain. Call light within reach.
--- NOTE | 2019-05-08 17:36 | NUR ---
REPORT TO ANA JENKINS, PATIENT READY FOR TRANSPORT TO ROOM [id number]
[2019-05-08 18:20] VITALS: BP 136/68
[2019-05-08 19:53] VITALS: BP 111/63
[2019-05-08] MEDS ORDERED: PHARMACOKINETIC MONITORING MC PRN (20:30)
[2019-05-08] MEDS: VANCOMYCIN 1,900 MG in SODIUM CHLORIDE 0.9% 250 ML IV SCH (23:51)
[2019-05-09] MEDS: HEPARIN 5,000 UNITS/ML, 1ML SQ SCH ×4 (00:01→23:58)
[2019-05-09 00:16] VITALS: BP 115/67
[2019-05-09] MEDS: AMPICILLIN/SULBACTAM 3 GM in SODIUM CHLORIDE 0.9% 100 ML IV SCH ×4 (02:12→21:01)
[2019-05-09 05:45] LABS: CALCIUM 7.9 mg/dL (8.5-10.1); CHLORIDE 106 mmol/L (98-107)
[2019-05-09 05:46] LABS: BASOPHILS # (AUTO) 0.04 x10^3/uL (0-0.1); BASOPHILS % (AUTO) 0 % (0-1); EOSINOPHILS # (AUTO) 0.01 x10^3/uL (0-0.4); EOSINOPHILS % (AUTO) 0 % (1-7); LYMPHOCYTES # (AUTO) 1.92 x10^3/uL (1-3.4); LYMPHOCYTES % (AUTO) 14 % (22-44); MD NO; MEAN CORPUSCULAR HEMOGLOBIN 26.1 pg (27.5-34.5); MEAN CORPUSCULAR HGB CONC 33.1 g/dL (33.2-36.2); MEAN CORPUSCULAR VOLUME 78.8 fL (81-97); MEAN PLATELET VOLUME 6.1 fL (7.4-10.4); MONOCYTES # (AUTO) 0.76 x10^3/uL (0.2-0.8); MONOCYTES % (AUTO) 6 % (2-9); NEUTROPHILS # (AUTO) 11.18 x10^3/uL (1.8-6.8); NEUTROPHILS % (AUTO) 80 % (42-75); PLATELET COUNT 565 x10^3/uL (130-400); RED BLOOD COUNT 3.98 x10^6/uL (4.38-5.82); RED CELL DISTRIBUTION WIDTH 19.8 % (9.4-14.8)
[2019-05-09 05:48] LABS: % IRON SATURATION 6 % (20-55); ANION GAP 8 mmol/L (5-15); CREATININE 0.96 mg/dL (0.7-1.3); IRON LEVEL 9 mcg/dL (65-175); TOTAL IRON BINDING CAPACITY 159 mcg/dL (250-450)
[2019-05-09 07:13] VITALS: BP 135/70
[2019-05-09] MEDS: METHADONE 10 MG TABLET PO SCH (08:03)
[2019-05-09] MEDS: KETOROLAC 30 MG/1 ML IV PRN ×2 (08:03→17:04)
[2019-05-09] MEDS: COLCHICINE 0.6 MG CAPSULE PO SCH (08:04)
[2019-05-09] MEDS: SODIUM CHLORIDE 0.9% 1,000 ML IV SCH (12:21)
[2019-05-09] MEDS: VANCOMYCIN 1,900 MG in SODIUM CHLORIDE 0.9% 250 ML IV SCH ×2 (12:21→23:56)
[2019-05-09 12:22] VITALS: BP 126/84
[2019-05-10] MEDS: AMPICILLIN/SULBACTAM 3 GM in SODIUM CHLORIDE 0.9% 100 ML IV SCH ×4 (02:22→20:11)
[2019-05-10 05:13] LABS: BASOPHILS # (AUTO) 0.04 x10^3/uL (0-0.1); BASOPHILS % (AUTO) 0 % (0-1); EOSINOPHILS # (AUTO) 0.08 x10^3/uL (0-0.4); EOSINOPHILS % (AUTO) 1 % (1-7); LYMPHOCYTES # (AUTO) 2.63 x10^3/uL (1-3.4); LYMPHOCYTES % (AUTO) 19 % (22-44); MD NO; MEAN CORPUSCULAR HEMOGLOBIN 25.7 pg (27.5-34.5); MEAN CORPUSCULAR HGB CONC 32.8 g/dL (33.2-36.2); MEAN CORPUSCULAR VOLUME 78.3 fL (81-97); MEAN PLATELET VOLUME 5.9 fL (7.4-10.4); MONOCYTES # (AUTO) 0.81 x10^3/uL (0.2-0.8); MONOCYTES % (AUTO) 6 % (2-9); NEUTROPHILS # (AUTO) 9.98 x10^3/uL (1.8-6.8); NEUTROPHILS % (AUTO) 74 % (42-75); PLATELET COUNT 640 x10^3/uL (130-400); RED BLOOD COUNT 3.86 x10^6/uL (4.38-5.82); RED CELL DISTRIBUTION WIDTH 19.3 % (9.4-14.8)
[2019-05-10 07:29] VITALS: BP 115/68
[2019-05-10] MEDS: HEPARIN 5,000 UNITS/ML, 1ML SQ SCH (07:31)
[2019-05-10] MEDS: METHADONE 10 MG TABLET PO SCH (08:12)
[2019-05-10] MEDS: COLCHICINE 0.6 MG CAPSULE PO SCH (08:12)
[2019-05-10] MEDS: CALCIUM/VITAMIN D3 250-125 TABLET PO SCH ×2 (08:17→20:11)
[2019-05-10 12:27] VITALS: BP 125/79
[2019-05-10] MEDS: SODIUM CHLORIDE 0.9% 1,000 ML IV SCH (14:27)
[2019-05-10] MEDS ORDERED: FENTANYL PF 100 MCG/2ML ONE ×3 (15:48→17:16)
[2019-05-10] MEDS ORDERED: MIDAZOLAM 1 MG/ML, 2ML ONE (15:48)
[2019-05-10] MEDS ORDERED: SUCCINYLCHOLINE 20 MG/ML, 10ML ONE (16:10)
[2019-05-10] MEDS ORDERED: DEXAMETHASONE 4 MG/ML, 1ML ONE (16:10)
[2019-05-10] MEDS ORDERED: ONDANSETRON 2MG/ML, 2ML ONE (16:10)
[2019-05-10] MEDS ORDERED: CEFAZOLIN 1,000 MG ONE (16:10)
[2019-05-10] MEDS ORDERED: ROCURONIUM 10MG/ML,5ML ONE (16:10)
[2019-05-10] MEDS ORDERED: PROPOFOL 10 MG/ML, 20ML ONE (16:10)
[2019-05-10] MEDS ORDERED: KETOROLAC 30 MG/1 ML IV PRN (16:30)
[2019-05-10] MEDS ORDERED: MEPERIDINE/PF 25MG/0.5ML IVPush PRN (16:30)
[2019-05-10] MEDS ORDERED: DIAZEPAM 5 MG/ML, 2ML IV PRN ×2 (16:30)
[2019-05-10] MEDS ORDERED: PROMETHAZINE 25 MG/ML, 1ML IV PRN (16:30)
[2019-05-10] MEDS ORDERED: ALBUTEROL SULFATE 2.5 MG/3 ML NPPB PRN (16:30)
[2019-05-10] MEDS ORDERED: ONDANSETRON 2MG/ML, 2ML IVPush PRN (16:30)
[2019-05-10] MEDS ORDERED: METOCLOPRAMIDE 5 MG/ML, 2ML IV PRN (16:30)
[2019-05-10] MEDS ORDERED: OXYcodone 5 MG/5 ML ORAL.SOL UDC PO PRN (16:30)
[2019-05-10] MEDS ORDERED: LABETALOL 5MG/ML, 20ML IV PRN (16:30)
[2019-05-10] MEDS ORDERED: HYDROmorphone 1 MG/ML, 1ML INJ IV PRN (16:30)
[2019-05-10] MEDS ORDERED: hydrALAzine 20 MG/ML, 1ML IV PRN (16:30)
[2019-05-10] MEDS ORDERED: KETOROLAC 30 MG/1 ML ONE (17:15)
[2019-05-10] MEDS ORDERED: OXYcodone 5 MG/5 ML ORAL.SOL UDC ONE (17:16)
[2019-05-10] MEDS: FENTANYL PF 100 MCG/2ML IV PRN ×2 (17:18→17:30)
[2019-05-10 18:05] VITALS: BP 122/84
[2019-05-10 20:29] VITALS: BP 119/72
[2019-05-10 23:52] VITALS: BP 115/79
[2019-05-11] MEDS: AMPICILLIN/SULBACTAM 3 GM in SODIUM CHLORIDE 0.9% 100 ML IV SCH ×5 (02:21→23:47)
[2019-05-11 04:00] VITALS: BP 129/87
[2019-05-11 06:41] LABS: BASOPHILS % (AUTO) 0 % (0-1); EOSINOPHILS # (AUTO) 0.13 x10^3/uL (0-0.4); EOSINOPHILS % (AUTO) 2 % (1-7); LYMPHOCYTES # (AUTO) 2.86 x10^3/uL (1-3.4); LYMPHOCYTES % (AUTO) 33 % (22-44); MD NO; MEAN CORPUSCULAR HEMOGLOBIN 25.6 pg (27.5-34.5); MEAN CORPUSCULAR HGB CONC 32.2 g/dL (33.2-36.2); MEAN CORPUSCULAR VOLUME 79.4 fL (81-97); MEAN PLATELET VOLUME 5.7 fL (7.4-10.4); MONOCYTES # (AUTO) 0.68 x10^3/uL (0.2-0.8); MONOCYTES % (AUTO) 8 % (2-9); NEUTROPHILS # (AUTO) 5.13 x10^3/uL (1.8-6.8); NEUTROPHILS % (AUTO) 58 % (42-75); PLATELET COUNT 574 x10^3/uL (130-400); RED BLOOD COUNT 3.58 x10^6/uL (4.38-5.82)
[2019-05-11 06:46] VITALS: BP 115/83
[2019-05-11] MEDS: HEPARIN 5,000 UNITS/ML, 1ML SQ SCH ×3 (07:33→07:34)
[2019-05-11] MEDS: CALCIUM/VITAMIN D3 250-125 TABLET PO SCH ×2 (08:27→23:47)
[2019-05-11] MEDS: METHADONE 10 MG TABLET PO SCH (08:27)
[2019-05-11 12:42] VITALS: BP 140/91
[2019-05-11] MEDS: SODIUM CHLORIDE 0.9% 1,000 ML IV SCH ×2 (14:47→23:48)
[2019-05-11 19:44] VITALS: BP 134/89
[2019-05-12] MEDS ORDERED: MAALOX/HYOSCYAMINE/LIDOCAINE 45 ML BTL PO ONE (02:00)
[2019-05-12 02:45] VITALS: BP 136/88
[2019-05-12] MEDS: AMPICILLIN/SULBACTAM 3 GM in SODIUM CHLORIDE 0.9% 100 ML IV SCH ×3 (06:20→17:00)
[2019-05-12 06:45] VITALS: BP 137/89
[2019-05-12] MEDS: HEPARIN 5,000 UNITS/ML, 1ML SQ SCH ×3 (08:00→11:37)
[2019-05-12] MEDS: METHADONE 10 MG TABLET PO SCH (09:21)
[2019-05-12] MEDS: CALCIUM/VITAMIN D3 250-125 TABLET PO SCH ×2 (09:21→20:03)
[2019-05-12] MEDS ORDERED: METHADONE 10 MG TABLET ONE (11:41)
[2019-05-12] MEDS ORDERED: METHADONE 40 MG TABLET.SOL PO ONE (12:00)
[2019-05-12 12:48] VITALS: BP 124/84
[2019-05-12] MEDS: IRON SUCROSE COMPLEX 100MG/5ML IV SCH (13:05)
[2019-05-12 13:24] LABS: BASOPHILS # (AUTO) 0.03 x10^3/uL (0-0.1); BASOPHILS % (AUTO) 0 % (0-1); EOSINOPHILS # (AUTO) 0.22 x10^3/uL (0-0.4); EOSINOPHILS % (AUTO) 2 % (1-7); LYMPHOCYTES # (AUTO) 3.23 x10^3/uL (1-3.4); LYMPHOCYTES % (AUTO) 36 % (22-44); MD NO; MEAN CORPUSCULAR HEMOGLOBIN 25.6 pg (27.5-34.5); MEAN CORPUSCULAR HGB CONC 32.1 g/dL (33.2-36.2); MEAN CORPUSCULAR VOLUME 79.8 fL (81-97); MEAN PLATELET VOLUME 5.7 fL (7.4-10.4); MONOCYTES # (AUTO) 0.49 x10^3/uL (0.2-0.8); MONOCYTES % (AUTO) 6 % (2-9); NEUTROPHILS # (AUTO) 4.96 x10^3/uL (1.8-6.8); NEUTROPHILS % (AUTO) 56 % (42-75); PLATELET COUNT 704 x10^3/uL (130-400); RED BLOOD COUNT 3.93 x10^6/uL (4.38-5.82); RED CELL DISTRIBUTION WIDTH 19.7 % (9.4-14.8)
[2019-05-12 20:05] VITALS: BP 120/89
[2019-05-13] MEDS: AMPICILLIN/SULBACTAM 3 GM in SODIUM CHLORIDE 0.9% 100 ML IV SCH ×5 (00:19→23:46)
[2019-05-13 02:10] VITALS: BP 127/68
[2019-05-13] MEDS: SODIUM CHLORIDE 0.9% 1,000 ML IV SCH ×2 (02:38→19:43)
[2019-05-13 06:04] LABS: BASOPHILS # (AUTO) 0.04 x10^3/uL (0-0.1); BASOPHILS % (AUTO) 1 % (0-1); EOSINOPHILS # (AUTO) 0.23 x10^3/uL (0-0.4); EOSINOPHILS % (AUTO) 3 % (1-7); LYMPHOCYTES % (AUTO) 39 % (22-44); MD NO; MEAN CORPUSCULAR HGB CONC 32.9 g/dL (33.2-36.2); MEAN CORPUSCULAR VOLUME 78.9 fL (81-97); MEAN PLATELET VOLUME 5.7 fL (7.4-10.4); MONOCYTES # (AUTO) 0.52 x10^3/uL (0.2-0.8); MONOCYTES % (AUTO) 7 % (2-9); NEUTROPHILS # (AUTO) 3.99 x10^3/uL (1.8-6.8); NEUTROPHILS % (AUTO) 51 % (42-75); PLATELET COUNT 643 x10^3/uL (130-400); RED BLOOD COUNT 3.57 x10^6/uL (4.38-5.82); RED CELL DISTRIBUTION WIDTH 19.6 % (9.4-14.8)
[2019-05-13 06:17] LABS: CHLORIDE 109 mmol/L (98-107)
[2019-05-13 06:22] LABS: ANION GAP 4 mmol/L (5-15); CALCIUM 8.2 mg/dL (8.5-10.1); CREATININE 0.89 mg/dL (0.7-1.3)
[2019-05-13 06:48] VITALS: BP 115/76
[2019-05-13] MEDS ORDERED: METHADONE 10 MG TABLET ONE (08:59)
[2019-05-13] MEDS: METHADONE 40 MG TABLET.SOL PO SCH (09:00)
[2019-05-13] MEDS: HEPARIN 5,000 UNITS/ML, 1ML SQ SCH ×4 (09:06→23:55)
[2019-05-13] MEDS: IRON SUCROSE COMPLEX 100MG/5ML IV SCH (09:06)
[2019-05-13] MEDS: CALCIUM/VITAMIN D3 250-125 TABLET PO SCH ×2 (09:06→19:43)
[2019-05-13 12:24] VITALS: BP 137/82
[2019-05-13 13:56] VITALS: BP 107/62
[2019-05-13 18:53] VITALS: BP 122/75
[2019-05-14 04:05] VITALS: BP 138/88
[2019-05-14] MEDS: AMPICILLIN/SULBACTAM 3 GM in SODIUM CHLORIDE 0.9% 100 ML IV SCH ×5 (05:46→23:52)
[2019-05-14 06:57] VITALS: BP 127/92
[2019-05-14] MEDS: HEPARIN 5,000 UNITS/ML, 1ML SQ SCH ×3 (08:00→19:49)
[2019-05-14] MEDS: IRON SUCROSE COMPLEX 100MG/5ML IV SCH (08:38)
[2019-05-14] MEDS: CALCIUM/VITAMIN D3 250-125 TABLET PO SCH ×2 (08:38→19:48)
[2019-05-14] MEDS: METHADONE 40 MG TABLET.SOL PO SCH (08:38)
[2019-05-14] MEDS: SODIUM CHLORIDE 0.9% 1,000 ML IV SCH (12:42)
[2019-05-14 14:08] VITALS: BP 138/90
[2019-05-14 20:18] VITALS: BP 116/76
[2019-05-15 01:11] VITALS: BP 138/88
[2019-05-15] MEDS: SODIUM CHLORIDE 0.9% 1,000 ML IV SCH ×2 (04:10→21:16)
[2019-05-15] MEDS: AMPICILLIN/SULBACTAM 3 GM in SODIUM CHLORIDE 0.9% 100 ML IV SCH ×4 (06:16→23:59)
[2019-05-15 06:40] VITALS: BP 133/94
[2019-05-15] MEDS: HEPARIN 5,000 UNITS/ML, 1ML SQ SCH ×2 (08:00→15:44)
[2019-05-15] MEDS: METHADONE 40 MG TABLET.SOL PO SCH (08:55)
[2019-05-15] MEDS: CALCIUM/VITAMIN D3 250-125 TABLET PO SCH ×2 (08:55→21:16)
[2019-05-15] MEDS: IRON SUCROSE COMPLEX 100MG/5ML IV SCH (08:57)
[2019-05-15] MEDS: FAMOTIDINE 20 MG TABLET PO SCH ×2 (11:01→21:16)
[2019-05-15] MEDS ORDERED: METH40TA2 PO (13:27)
[2019-05-15] MEDS ORDERED: AMPI3VIA IV (13:27)
[2019-05-15] MEDS ORDERED: FERR324T5 PO (13:27)
[2019-05-15] MEDS ORDERED: OMEP-110 PO (13:27)
[2019-05-15 14:06] VITALS: BP 106/70
[2019-05-15 16:27] VITALS: BP 116/78
[2019-05-15 18:34] VITALS: BP 107/75
[2019-05-16 00:45] VITALS: BP 114/64
[2019-05-16] MEDS: AMPICILLIN/SULBACTAM 3 GM in SODIUM CHLORIDE 0.9% 100 ML IV SCH ×2 (05:33→12:18)
[2019-05-16 05:54] LABS: BASOPHILS # (AUTO) 0.04 x10^3/uL (0-0.1); BASOPHILS % (AUTO) 1 % (0-1); EOSINOPHILS # (AUTO) 0.28 x10^3/uL (0-0.4); EOSINOPHILS % (AUTO) 3 % (1-7); LYMPHOCYTES # (AUTO) 3.54 x10^3/uL (1-3.4); LYMPHOCYTES % (AUTO) 40 % (22-44); MD NO; MEAN CORPUSCULAR HEMOGLOBIN 25.8 pg (27.5-34.5); MEAN CORPUSCULAR HGB CONC 32.4 g/dL (33.2-36.2); MEAN CORPUSCULAR VOLUME 79.8 fL (81-97); MEAN PLATELET VOLUME 5.8 fL (7.4-10.4); MONOCYTES # (AUTO) 0.57 x10^3/uL (0.2-0.8); MONOCYTES % (AUTO) 7 % (2-9); NEUTROPHILS # (AUTO) 4.39 x10^3/uL (1.8-6.8); NEUTROPHILS % (AUTO) 50 % (42-75); PLATELET COUNT 706 x10^3/uL (130-400); RED BLOOD COUNT 3.76 x10^6/uL (4.38-5.82); RED CELL DISTRIBUTION WIDTH 20.2 % (9.4-14.8)
[2019-05-16 06:38] VITALS: BP 118/71
[2019-05-16] MEDS: HEPARIN 5,000 UNITS/ML, 1ML SQ SCH ×2 (08:00)
[2019-05-16] MEDS: CALCIUM/VITAMIN D3 250-125 TABLET PO SCH (09:00)
[2019-05-16] MEDS: METHADONE 40 MG TABLET.SOL PO SCH (09:09)
[2019-05-16] MEDS: FAMOTIDINE 20 MG TABLET PO SCH (09:10)
[2019-05-16] MEDS: IRON SUCROSE COMPLEX 100MG/5ML IV SCH (09:10)
[2019-05-16] MEDS: SODIUM CHLORIDE 0.9% 1,000 ML IV SCH (14:00)
[2019-05-16 14:23] VITALS: BP 118/77
== END 2019-05-16 15:15 | DRG 854 ==
LOC: ED 12:51 → EDIP 12:52 → ED 13:14 → 4NE 18:06
PROVIDERS: ADMIT Internal Medicine; ATTEND Internal Medicine
PROC: 0JBR0ZZ Excision of Left Foot Subcutaneous Tissue and Fascia, Open Approach (ICD-10-PCS; 2019-05-10)
PROC: 0S9N0ZZ Drainage of Left Metatarsal-Phalangeal Joint, Open Approach (ICD-10-PCS; principal; 2019-05-10 16:00)
PROC: B5181ZA Fluoroscopy of Superior Vena Cava using Low Osmolar Contrast, Guidance (ICD-10-PCS; 2019-05-12)
PROC: 02HV33Z Insertion of Infusion Device into Superior Vena Cava, Percutaneous Approach (ICD-10-PCS; 2019-05-12)
PROC: B548ZZA Ultrasonography of Superior Vena Cava, Guidance (ICD-10-PCS; 2019-05-12)
DX: A40.0 Sepsis due to streptococcus, group A (principal); L03.116 Cellulitis of left lower limb; L03.115 Cellulitis of right lower limb; M00.872 Arthritis due to other bacteria, left ankle and foot; B15.9 Hepatitis A without hepatic coma; F11.20 Opioid dependence, uncomplicated; L97.919 Non-pressure chronic ulcer of unspecified part of right lower leg with unspecified severity; D64.9 Anemia, unspecified; B19.20 Unspecified viral hepatitis C without hepatic coma; D50.9 Iron deficiency anemia, unspecified; G47.00 Insomnia, unspecified; G89.4 Chronic pain syndrome; K21.9 Gastro-esophageal reflux disease without esophagitis; M19.072 Primary osteoarthritis, left ankle and foot; M1A.9XX1 Chronic gout, unspecified, with tophus (tophi); M65.872 Other synovitis and tenosynovitis, left ankle and foot; Z91.19 Patient's noncompliance with other medical treatment and regimen; Z59.0 Homelessness; Z90.49 Acquired absence of other specified parts of digestive tract; Z89.421 Acquired absence of other right toe(s)
CPT/HCPCS: 36415; 36573; 71046; 80048; 80053; 80074; 80307; 82330; 83540; 83550; 83605; 83735; 84100; 84145; 84550; 84560; 85025; 85610; 86140; 86480; 87040; 87070; 87075; 87147; 87181; 87205; 87521; 87522; 87806; 93306; 96365; 96368; 96375; 96376; 99285; G0378; J0295; J0690; J1100; J1170; J1644; J1756; J1885; J2250; J2405; J2543; J2704; J3010; J3370; C1751; C1769; G0475; J0330; J7030; J7040; J7050